=== PATIENT | female | born 2000 | race Caucasian/White ===

== ENCOUNTER 2024-05-16 16:19 | Outpatient (CLI) | payer BC, SELFPAY ==
[2024-05-16 22:38] LABS: Bacterial Vaginosis* Negative (Negative); Candida glab/krus NOT DETECTED (No Detected); Candida species DETECTED (No Detected); Trichomonas vaginalis NOT DETECTED (No Detected)
[2024-05-16 23:09] LABS: Chlamydia DNA Amplified* NOT DETECTED (No Detected); GC DNA Amplified* NOT DETECTED (No Detected)
[2024-05-18 13:35] LABS: HPV Source Cervix; HPV, High Risk by TMA Not Detected
== END 2024-05-16 16:20 | disposition home or self-care (01) ==
PROVIDERS: PCP Registered Nurse; Visit Provider Registered Nurse
DX: N89.8 Other specified noninflammatory disorders of vagina (principal); R10.2 Pelvic and perineal pain
CPT/HCPCS: 81513; 87481; 87491; 87591; 87624; 87625; 87661; 88141; 88142

== ENCOUNTER 2024-06-03 10:58 | Outpatient (CLI) | payer BC, SELFPAY ==
--- NOTE | 2024-06-03 11:15 | CRLHL7_ITS ---
For Patients: As a result of the Century Cures Act, medical imaging exams and procedure reports are released immediately into your electronic medical record. You may view this report before your referring provider. If you have questions, please contact your health care provider. CLINICAL HISTORY: Pelvic pain for one year with the pain worse on the left side. Patient has an IUD. TECHNIQUE: 2D peguero scale ultrasound. In addition color Doppler and spectral Doppler analysis was performed of the pelvis using a transabdominal and transvaginal approach. FINDINGS: The uterus measures 9.4 x 4.3 x 5.3 cm. The endometrial lining measures 12 mm in thickness. IUD is obliquely positioned within the endometrium. The right ovary measures 3.8 x 2.9 x 3.2 cm in size and the left ovary measures 3.4 x 2.0 x 2.6 cm. The ovaries demonstrate normal arterial and venous blood flow on color Doppler and spectral Doppler analysis. There are no suspicious fluid collections within the cul-de-sac. Circumscribed cyst within the right ovary is present measuring 1.7 cm. No internal blood flow. IMPRESSION: IUD is obliquely orientated Within the endometrium and may be malpositioned. One of the arms extends towards the myometrium. Endometrial thickness 12 millimeters. No endometrial fluid. No ovarian torsion or excess pelvic free fluid. Dictated by Piter Stover MD @ 06/03/2024 12:09:12 PM (Electronically Signed)
== END 2024-06-03 10:59 | disposition home or self-care (01) ==
LOC: US 10:59
PROVIDERS: Visit Provider Registered Nurse
DX: R10.2 Pelvic and perineal pain (principal); R93.89 Abnormal findings on diagnostic imaging of other specified body structures; N83.201 Unspecified ovarian cyst, right side; N83.202 Unspecified ovarian cyst, left side
CPT/HCPCS: 76830; 76856; 93976; T1013